=== PATIENT | male | born 2000 | race Two or more races ===

== ENCOUNTER 2019-12-29 01:54 | Emergency (ER) | payer OTHER ==
[~2019-12-29] VITALS: Ht 177.8 cm; Wt 68.0 kg
[2019-12-29] MEDS ORDERED: SODIUM CHLORIDE 0.9% 1,000 ML IV ONE (02:08)
[2019-12-29 02:52] LABS: BASOPHILS % 0.7 % (0.0-2.0); EOSINOPHILS % 0.3 % (0.0-5.0); HEMATOCRIT. 44.7 % (42.0-52.0); HEMOGLOBIN. 15.3 g/dL (14.0-18.0); LYMPHOCYTES % 15.8 % (20.0-50.0); MEAN CORPUSCULAR HEMOGLOBIN 31.7 pg (28.0-32.0); MEAN PLATELET VOLUME 9.6 fl (7.4-10.4); MONOCYTES % 7.4 % (2.0-8.0); NEUTROPHILS % 75.8 % (40.0-76.0); PLATELET 299 x1000/uL (130-400); RED BLOOD CELL COUNT 4.81 mill/uL (4.7-6.1); RED CELL DISTRIBUTION WIDTH 12.6 % (11.6-14.6)
[2019-12-29 02:56] LABS: CHLORIDE 109 mEq/L (98-107)
[2019-12-29 03:01] LABS: ETHANOL BLOOD < 10 mg/dL
[2019-12-29 05:34] LABS: *AMPHETAMINES SCREEN URINE NEGATIVE (NEGATIVE); *BARBITURATES SCREEN URINE NEGATIVE (NEGATIVE); *BENZODIAZEPINES SCREEN URINE NEGATIVE (NEGATIVE); *COCAINE SCREEN URINE NEGATIVE (NEGATIVE); METHADONE URINE SCREEN NEGATIVE (NEGATIVE); OPIATES URINE SCREEN NEGATIVE (NEGATIVE); PHENCYCLIDINE URINE SCREEN NEGATIVE (NEGATIVE)
[2019-12-29 05:35] LABS: CANNABINOID URINE SCREEN NEGATIVE (NEGATIVE)
[2019-12-29 05:44] VITALS: BP 117/61
== END 2019-12-29 05:49 | disposition home or self-care (01) ==
LOC: ER 01:54
DX: I95.9 Hypotension, unspecified (principal); R55 Syncope and collapse; J45.909 Unspecified asthma, uncomplicated; E16.2 Hypoglycemia, unspecified
CPT/HCPCS: 36415; 71045; 80053; 80305; 80320; 84484; 85025; 86850; 86900; 86901; 93005; 96360; 99285; J7030; G0480